=== PATIENT | male | born 1945 | race Two or more races ===

== ENCOUNTER 2021-02-14 17:59 | Emergency (ER) | payer OTHER ==
[~2021-02-14] VITALS: Ht 188 cm; Wt 117.9 kg
[2021-02-14] MEDS ORDERED: ACETAMINOPHEN 500 MG TAB PO ONE (18:45)
[2021-02-14] MEDS ORDERED: hydrALAZINE HCL 20 MG/ML VL IV ONE ×2 (18:45→21:00)
[2021-02-14 18:47] LABS: Basophils # (auto) 0.3 10 ^3/uL (0-0.2); Basophils % (auto) 1.3 % (0.0-2.0); Eosinophils # (auto) 0.5 10 ^3/uL (0-0.8); Eosinophils % (auto) 2.6 % (0.0-7.0); Hematocrit 51.4 % (41.0-53.0); Hemoglobin 17.5 g/dL (13.5-17.5); Lymphocytes # (auto) 2.3 10 ^3/uL (0.4-5.4); Lymphocytes % (auto) 11.4 % (10.0-50.0); Mean Corpuscular Hemoglobin 31.5 pg (28.0-32.0); Mean Corpuscular Hgb Conc. 34.1 g/dL (32.0-36.0); Mean Corpuscular Volume 92.3 fL (80.0-100.0); Monocytes # (auto) 1.9 10 ^3/uL (0-1.3); Monocytes % (auto) 9.1 % (0.0-12.0); Neutrophils # (auto) 15.5 10 ^3/uL (1.6-8.6); Neutrophils % (auto) 75.6 % (37.0-80.0); Nucleated Red Blood Cells % 0.1 %; Platelet Count (auto) 418 10^3/uL (140-450); Red Blood Cells 5.57 10^6/uL (4.5-5.90); Red Cell Distribution Width 14.5 % (11.8-14.3); White Blood Cell 20.4 10^3/uL (4.4-10.8)
[2021-02-14 19:04] LABS: Alanine Aminotransferase 35 U/L (16-61); Anion Gap 5 (5-15); Aspartate Aminotransferase 27 U/L (15-37); BUN/Creatinine Ratio 12.2; Blood Urea Nitrogen 32 mg/dL (7-18); Calcium 9.6 mg/dL (8.5-10.1); Carbon Dioxide 24 mmol/L (21-32); Chloride 110 mmol/L (98-107); GFR African American 31 mL/min; GFR Non-African American 25 mL/min; Glucose 76 mg/dL (74-106); Potassium 4.3 mmol/L (3.5-5.1); Sodium 139 mmol/L (136-145)
[2021-02-14 19:08] LABS: Alkaline Phosphatase 74 U/L (45-117); Bilirubin, Total 0.3 mg/dL (0.2-1.0); Total Protein 7.8 g/dL (6.4-8.2)
[2021-02-14] MEDS ORDERED: cloNIDine HCL 0.1 MG TAB PO ONE (22:00)
[2021-02-14] MEDS ORDERED: METOCLOPRAMIDE HCL 5MG/ml INJ 2ml VIAL IV ONE (23:00)
[2021-02-14 23:28] LABS: Urine Bacteria NONE SEEN /hpf (None Seen); Urine Blood 2+ /uL (Negative); Urine Specific Gravity 1.018 (1.001-1.035); Urine Sperm PRESENT /hpf (None Seen); Urine WBC 4 /hpf (0 - 3)
[2021-02-15 02:42] VITALS: BP 146/70
== END 2021-02-15 02:47 | disposition short-term general hospital (02) ==
LOC: EDBD 17:59 → ER 18:07
DX: E11.649 Type 2 diabetes mellitus with hypoglycemia without coma (principal); I10 Essential (primary) hypertension; D72.829 Elevated white blood cell count, unspecified; Z88.2 Allergy status to sulfonamides
CPT/HCPCS: 36415; 70450; 71045; 80053; 81001; 82962; 83605; 83880; 84484; 85025; 87040; 87426; 93005; 96365; 96375; 96376; 99285; J0360; J2765